=== PATIENT | male | born 1950 | race Hispanic/Latino ===

== ENCOUNTER 2023-01-03 08:54 | Day surgery (SDC) | payer OTHER ==
[2022-12-28 15:08] LABS: BASOPHILS # (AUTO) 0.07 K/uL (0.00-0.20); BASOPHILS % (AUTO) 0.9 % (0.0-5.0); EOSINOPHILS # (AUTO) 0.55 K/uL (0.00-0.70); EOSINOPHILS % (AUTO) 7.4 % (0.0-8.0); HEMATOCRIT 36.7 % (42-54); IMMATURE GRANULOCYTE ABSOLUTE 0.01 K/uL (0-1); LYMPHOCYTES # (AUTO) 2.5 K/uL (1.0-4.8); LYMPHOCYTES % (AUTO) 33.9 % (21.0-51.0); MEAN CORPUSCULAR HEMOGLOBIN 31.7 pg (27.0-33.0); MEAN CORPUSCULAR HGB CONC 34.6 g/dL (32.0-36.0); MEAN CORPUSCULAR VOLUME 91.5 fL (79-99); MONOCYTES # (AUTO) 0.6 K/uL (0.1-1.0); MONOCYTES % (AUTO) 7.7 % (3.0-13.0); NEUTROPHILS # (AUTO) 3.7 K/uL (1.8-7.7); PLATELET COUNT (AUTO) 356 K/uL (130-400); RED BLOOD CELL COUNT(AUTO) 4.01 MIL/uL (4.50-6.20); RED CELL DISTRIBUTION WIDTH 13.3 % (11.0-15.5); WHITE BLOOD COUNT (AUTO) 7.4 K/uL (4.8-10.8)
[2022-12-28 15:15] LABS: CREATININE 0.8 mg/dL (0.5-1.5)
[2022-12-28 15:17] LABS: INR 0.97 (0.85-1.15); PROTHROMBIN TIME 11.3 SEC (9.6-11.6)
[2022-12-28 15:19] LABS: PARTIAL THROMBOPLASTIN TIME 28.5 SEC (26.3-35.5)
[2022-12-28 15:31] VITALS: BP 159/89; PULSE 78; RESP 17
[2023-01-03] VITALS (14 sets, daily range): BP systolic 130–167; BP diastolic 67–88; PULSE 80–90; RESP 14–18
[~2023-01-03] VITALS: Ht 160 cm; Wt 89.4 kg
[~2023-01-03 08:54] MED LIST: ATOR40TA71 PO; DOCU100C33 PO; ESCI5TAB16 PO; OLME40TA18 PO; TAMS-1 PO; TRAZ-253 PO
[2023-01-03] MEDS ORDERED: LACTATED RINGERS 1000ML 1,000 ML IV ONE (10:00)
[2023-01-03] MEDS: CEFAZOLIN SODIUM 2 GM VIAL ONE ×2 (10:32→14:45)
[2023-01-03] MEDS ORDERED: ONDANSETRON 4MG INJ ONE (14:00)
[2023-01-03] MEDS ORDERED: MIDAZOLAM HCL 1 MG/ML 2ML VIAL ONE (14:01)
[2023-01-03] MEDS ORDERED: PROPOFOL 10 MG/ML 20ML VIAL IV ONE (14:01)
[2023-01-03] MEDS ORDERED: ROCURONIUM 10MG/1ML SYR 10 MG/ML ML ONE (14:01)
[2023-01-03] MEDS ORDERED: FENTANYL CITRATE PF 50 MCG/1 ML 2ML VIAL ONE (14:01)
[2023-01-03] MEDS ORDERED: ROPIVACAINE 0.5% 5MG/ML 30ML IJ ONE (14:06)
[2023-01-03] MEDS ORDERED: MORPHINE PF 100MG/10ML AMP IV ONE (14:07)
[2023-01-03] MEDS ORDERED: PHENYLEPHRINE HCL 10 MG/ML 1ML VIAL IV ONE (14:46)
[2023-01-03] MEDS ORDERED: NEOSTIGMINE 5MG/5ML SYR IV ONE (15:18)
[2023-01-03] MEDS ORDERED: GLYCOPYRROLATE 1 MG/5 ML SYRINGE ONE (15:18)
== END 2023-01-03 17:00 | disposition home or self-care (01) ==
LOC: DAH 08:54
PROVIDERS: ATTEND Surgery
DX: K42.9 Umbilical hernia without obstruction or gangrene (principal); Z20.822 Contact with and (suspected) exposure to COVID-19; I10 Essential (primary) hypertension; E66.01 Morbid (severe) obesity due to excess calories; F17.210 Nicotine dependence, cigarettes, uncomplicated; Z79.899 Other long term (current) drug therapy; Z79.01 Long term (current) use of anticoagulants; Z80.9 Family history of malignant neoplasm, unspecified; Z68.33 Body mass index [BMI] 33.0-33.9, adult
CPT/HCPCS: 93005; 87426; 80048; 85025; 85610; 85730; 36415; 49593; 88302; 64488; A4663; J7120 ×2; J3010; J3490; J2710; J2250; J2704; J2274; J2405; J2795; J2371; J0690; A4930 ×2; A4215; A4223; A4222; A4221; A4600